=== PATIENT | female | born 1945 | race Asian ===

== ENCOUNTER 2025-01-10 02:06 | Inpatient (IN) | payer MEDICARE ==
[2025-01-10] VITALS (9 sets, daily range): BP systolic 98–130; BP diastolic 50–76; PULSE 90–104; RESP 16–24; TEMP 35.8–36.7; O2SAT 0–100
[~2025-01-10] VITALS: Ht 152.4 cm; Wt 40.9 kg
[2025-01-10 03:12] LABS: BASOPHILS % 0.3 % (0.0-2.0); EOSINOPHILS % 0.3 % (0.0-5.0); HEMATOCRIT. 39.7 % (36.0-48.0); HEMOGLOBIN. 12.4 g/dL (12.0-16.0); LYMPHOCYTES % 11.2 % (20.0-50.0); MEAN PLATELET VOLUME 8.0 fl (7.4-10.4); MONOCYTES % 6.9 % (2.0-8.0); NEUTROPHILS % 81.3 % (40.0-76.0); PLATELET 403 x1000/uL (130-400); RED BLOOD CELL COUNT 4.25 mill/uL (4.2-5.4); RED CELL DISTRIBUTION WIDTH 14.4 % (11.6-14.6)
[2025-01-10] MEDS: SODIUM CHLORIDE 0.9% 1,000 ML IV ONE (03:20)
[2025-01-10 03:47] LABS: CREATININE 0.5 mg/dL (0.6-1.0); UREA NITROGEN BLOOD 15 mg/dL (9-23)
[2025-01-10 03:49] LABS: ASPARTATE AMINOTRANSFERASE 25 IU/L (<34); BILIRUBIN DIRECT 0.1 mg/dL (<=3.0); BILIRUBIN TOTAL 0.6 mg/dL (0.1-1.0)
[2025-01-10 03:50] LABS: PROTEIN TOTAL 7.1 g/dL (6.0-8.3)
[2025-01-10 03:51] LABS: TROPONIN I HIGH SENSITIVITY 36 ng/L (3.0-34)
[2025-01-10] MEDS ORDERED: GUAIFENESIN 200MG/10ML SUGAR FREE UDC PO PRN (08:15)
[2025-01-10] MEDS ORDERED: ONDANSETRON HCL 4MG/2ML INJ IV PRN (08:15)
[2025-01-10] MEDS ORDERED: ACETAMINOPHEN 325MG TABLET PO PRN ×2 (08:15)
[2025-01-10] MEDS ORDERED: IPRATROPIUM/ALBUTEROL 0.5-3(2.5)MG/3ML NEB HHN PRN (08:15)
[2025-01-10] MEDS ORDERED: CLONIDINE 0.1MG TABLET PO PRN (08:15)
[2025-01-10] MEDS ORDERED: LACTULOSE 20G/30ML UDC PO PRN (09:00)
[2025-01-10] MEDS: POLYETHYLENE GLYCOL 3350 (17GM) 1 DOSE PACK PO NR (11:49)
[2025-01-10] MEDS: PANTOPRAZOLE 40MG DR TABLET PO SCH (11:49)
[2025-01-10] MEDS: ENOXAPARIN 30MG/0.3ML SYR SUBCUT SCH (13:30)
[2025-01-10 19:34] LABS: INR 1.0
[2025-01-10 19:43] LABS: PHOSPHORUS 3.1 mg/dL (2.5-4.9)
[2025-01-10 19:46] LABS: TROPONIN I HIGH SENSITIVITY 408 ng/L (3.0-34)
[2025-01-10] MEDS: ATORVASTATIN CALCIUM 20MG TABLET PO SCH (20:48)
[2025-01-10] MEDS: AMLODIPINE 2.5MG TABLET PO SCH (20:48)
[2025-01-10] MEDS: ASPIRIN 81MG TABLET PO SCH (20:48)
[2025-01-10] MEDS ORDERED: ATORVASTATIN CALCIUM 20MG TABLET PO SCH (21:00)
[2025-01-10] MEDS: IPRATROPIUM/ALBUTEROL 0.5-3(2.5)MG/3ML NEB HHN SCH (21:07)
[2025-01-10] MEDS: SODIUM CHLORIDE 0.9% 1,000 ML IV SCH (23:02)
[2025-01-11] VITALS (12 sets, daily range): BP systolic 100–135; BP diastolic 50–69; PULSE 79–116; RESP 18–24; TEMP 36.4–37.1; O2SAT 95–100
[2025-01-11 02:50] LABS: CREATINE KINASE MB FRACTION 3.3 ng/mL (0.5-3.6)
[2025-01-11 02:56] LABS: TROPONIN I HIGH SENSITIVITY 230.0 ng/L (3.0-34)
[2025-01-11] MEDS: MAGNESIUM 2 G PREMIX 50 ML IV SCH (05:24)
[2025-01-11 07:29] LABS: BASOPHILS % 0.4 % (0.0-2.0); EOSINOPHILS % 2.5 % (0.0-5.0); HEMATOCRIT. 33.2 % (36.0-48.0); HEMOGLOBIN. 10.7 g/dL (12.0-16.0); LYMPHOCYTES % 17.3 % (20.0-50.0); MEAN PLATELET VOLUME 8.9 fl (7.4-10.4); MONOCYTES % 7.5 % (2.0-8.0); NEUTROPHILS % 72.3 % (40.0-76.0); PLATELET 378 x1000/uL (130-400); RED BLOOD CELL COUNT 3.62 mill/uL (4.2-5.4); RED CELL DISTRIBUTION WIDTH 14.0 % (11.6-14.6)
[2025-01-11 07:39] LABS: CREATINE KINASE MB FRACTION 2.3 ng/mL (0.5-3.6)
[2025-01-11 07:43] LABS: CREATININE 0.5 mg/dL (0.6-1.0); T4 FREE 1.16 ng/dL (0.89-1.76); TRIGLYCERIDE 110 mg/dL (0-150); UREA NITROGEN BLOOD 15 mg/dL (9-23)
[2025-01-11 07:44] LABS: LDL CHOLESTEROL 130 mg/dL (5-100)
[2025-01-11 07:45] LABS: ASPARTATE AMINOTRANSFERASE 20 IU/L (<34); BILIRUBIN DIRECT 0.1 mg/dL (<=3.0); PHOSPHORUS 3.0 mg/dL (2.5-4.9)
[2025-01-11 07:46] LABS: BILIRUBIN TOTAL 0.6 mg/dL (0.1-1.0); PROTEIN TOTAL 5.8 g/dL (6.0-8.3)
[2025-01-11 08:05] LABS: TROPONIN I HIGH SENSITIVITY 195 ng/L (3.0-34)
[2025-01-11] MEDS: ENOXAPARIN 40MG/0.4ML SYR SUBCUT SCH (09:28)
[2025-01-11] MEDS: LIDOCAINE HCL 1% 20ML VIAL INFIL NR (13:30)
[2025-01-11] MEDS: MORPHINE SULFATE 10 MG/ML INJ (NOT FOR IM USE) IV PRN (14:27)
[2025-01-11] MEDS: PIPERACILLIN/TAZO 3.375G/50ML 50 ML IV SCH (15:26)
[2025-01-11] MEDS: MORPHINE SULFATE 10 MG/ML INJ (NOT FOR IM USE) IV SCH (18:37)
[2025-01-11 22:06] LABS: INR 1.0
[2025-01-12] VITALS (10 sets, daily range): BP systolic 99–125; BP diastolic 46–65; PULSE 78–101; RESP 18–40; TEMP 36.4–36.6; O2SAT 86–100
[2025-01-12] MEDS ORDERED: DEXTROSE 50% WATER 50ML SYRINGE IV PRN (09:30)
[2025-01-12] MEDS: POLYETHYLENE GLYCOL 3350 (17GM) 1 DOSE PACK PO SCH (09:35)
[2025-01-12] MEDS: BLOOD SUGAR DIAGNOSTIC STRIP TEST SCH (12:20)
[2025-01-12 13:19] LABS: BG BASE EXCESS 15.3 mmol/L (-2.0-3.0); BG CARBOXYHEMOGLOBIN 0.8 % (0.5-1.5); BG DEOXYHEMOGLOBIN 0.8 % (0.0-5.0); BG FLOW(L/min) 3.00 L/min; BG FRACTION INSPIRED OXYGEN 32; BG HCO3 ACT 42.1 mmol/L (21.0-28.0); BG METHEMOGLOBIN 0.1 % (0.5-1.5); BG OXYGEN SATURATION 99.2 % (94.0-98.0); BG OXYHEMOGLOBIN 98.3 % (94.0-98.0); BG PCO2 65.4 mmHg (32.0-45.0); BG PH 7.427 (7.350-7.450); BG PO2 137.3 mmHg (83.0-108.0); BG SAMPLE SITE LEFT RADIAL; BG TOTAL HEMOGLOBIN 10.4 g/dL (12.0-16.0); BG VENT MODE NASAL CANNULA
[2025-01-12] MEDS: INSULIN LISPRO 100 UNITS/ML SUBCUT SCH (14:06)
[2025-01-12 22:38] LABS: HEMATOCRIT. 30.3 % (36.0-48.0); HEMOGLOBIN. 9.7 g/dL (12.0-16.0); MEAN PLATELET VOLUME 8.7 fl (7.4-10.4); PLATELET 351 x1000/uL (130-400); RED BLOOD CELL COUNT 3.26 mill/uL (4.2-5.4); RED CELL DISTRIBUTION WIDTH 13.4 % (11.6-14.6)
[2025-01-12 22:56] LABS: CREATININE 0.4 mg/dL (0.6-1.0); UREA NITROGEN BLOOD 11 mg/dL (9-23)
[2025-01-12 23:13] LABS: EOSINOPHILS % MANUAL 3.0 % (0.0-5.0); LYMPHOCYTES % MANUAL 7.0 % (20.0-60.0); MONOCYTES % MANUAL 7.0 % (2.0-8.0); NEUTROPHILS % MANUAL 83.0 % (45.0-75.0); PLATELET ESTIMATE NORMAL
[2025-01-13] VITALS (12 sets, daily range): BP systolic 97–146; BP diastolic 48–66; PULSE 81–100; RESP 15–24; TEMP 36.3–36.7; O2SAT 95–100
[2025-01-13 08:37] LABS: PLATELET 330 x1000/uL (130-400); RED BLOOD CELL COUNT 3.29 mill/uL (4.2-5.4); RED CELL DISTRIBUTION WIDTH 13.5 % (11.6-14.6)
[2025-01-13 08:52] LABS: CREATININE 0.3 mg/dL (0.6-1.0); UREA NITROGEN BLOOD 6 mg/dL (9-23)
[2025-01-13] MEDS ORDERED: SENNOSIDES/DOCUSATE SOD 8.6/50MG TABLET PO PRN (13:30)
[2025-01-13] MEDS ORDERED: NALOXONE HCL 0.4MG/ML VIAL IV PRN (13:45)
[2025-01-14] VITALS (12 sets, daily range): BP systolic 113–144; BP diastolic 45–91; PULSE 80–95; RESP 15–24; TEMP 34.4–36.7; O2SAT 96–99
[2025-01-14 06:49] LABS: UREA NITROGEN BLOOD 7 mg/dL (9-23)
[2025-01-14 07:06] LABS: CREATININE 0.4 mg/dL (0.6-1.0)
[2025-01-14] MEDS: HYDROCODONE/ACETAMINOPHEN 5/325MG TABLET PO PRN (09:13)
[2025-01-14] MEDS: POTASSIUM CHLORIDE 20MEQ/PACKET PO NR (11:28)
[2025-01-15] VITALS (9 sets, daily range): BP systolic 112–142; BP diastolic 45–79; PULSE 77–100; RESP 17–20; TEMP 35.7–36.8; O2SAT 96–100
[2025-01-15 09:46] LABS: PLATELET 392 x1000/uL (130-400); RED BLOOD CELL COUNT 3.60 mill/uL (4.2-5.4); RED CELL DISTRIBUTION WIDTH 13.9 % (11.6-14.6)
[2025-01-15 12:12] LABS: CREATININE 0.5 mg/dL (0.6-1.0); UREA NITROGEN BLOOD 9 mg/dL (9-23)
[2025-01-16] VITALS: BP 151/77; PULSE 97; RESP 21; TEMP 36.3; O2SAT 97
[2025-01-16 04:00] VITALS: BP 158/68; PULSE 88; RESP 18; TEMP 36.1; O2SAT 97
[2025-01-16 08:00] VITALS: BP 137/70; PULSE 91; RESP 17; TEMP 35.7; O2SAT 95
[2025-01-16 12:00] VITALS: BP 129/68; PULSE 98; RESP 16; TEMP 36.2; O2SAT 99
[2025-01-16] MEDS ORDERED: EMPA25TA MT (14:12)
[2025-01-16 16:00] VITALS: BP 124/64; PULSE 95; RESP 16; TEMP 36.2; O2SAT 99
[2025-01-16 17:33] VITALS: BP 124/64; PULSE 95; RESP 16; TEMP 97.1
== END 2025-01-16 19:39 | disposition home or self-care (01) | DRG 199 ==
LOC: ER 02:06 → 6WST 04:37 → EDBEDREQTM 05:15 → EDBEDREQ 05:15 → ENRESERV 06:07
PROVIDERS: ADMIT Internal Medicine; ATTEND Internal Medicine
PROC: 5A0935A Assistance with Respiratory Ventilation, Less than 24 Consecutive Hours, High Flow/Velocity Cannula (ICD-10-PCS; principal; 2025-01-10)
PROC: 5A0935A Assistance with Respiratory Ventilation, Less than 24 Consecutive Hours, High Flow/Velocity Cannula (ICD-10-PCS; 2025-01-11)
PROC: 0W9930Z Drainage of Right Pleural Cavity with Drainage Device, Percutaneous Approach (ICD-10-PCS; 2025-01-11)
DX: J93.83 Other pneumothorax (principal); I21.A1 Myocardial infarction type 2; J96.21 Acute and chronic respiratory failure with hypoxia; J94.8 Other specified pleural conditions; J93.81 Chronic pneumothorax; K56.41 Fecal impaction; I10 Essential (primary) hypertension; J84.10 Pulmonary fibrosis, unspecified; M79.7 Fibromyalgia; R91.1 Solitary pulmonary nodule; I44.0 Atrioventricular block, first degree; K57.30 Diverticulosis of large intestine without perforation or abscess without bleeding; R73.9 Hyperglycemia, unspecified; S01.81XA Laceration without foreign body of other part of head, initial encounter; E78.5 Hyperlipidemia, unspecified; I25.10 Atherosclerotic heart disease of native coronary artery without angina pectoris; J43.9 Emphysema, unspecified; N32.89 Other specified disorders of bladder; W18.39XA Other fall on same level, initial encounter; Z99.81 Dependence on supplemental oxygen; Z90.49 Acquired absence of other specified parts of digestive tract; Y93.89 Activity, other specified; Y92.89 Other specified places as the place of occurrence of the external cause; Y99.8 Other external cause status
CPT/HCPCS: 36415; 36600; 71045; 71250; 74176; 80048; 80061; 80076; 82140; 82375; 82550; 82553; 82805; 82962; 83036; 83735; 83880; 83930; 84100; 84439; 84443; 84484; 85025; 85027; 92610; 93005; 93306; 93970; 94070; 94640; 94664; 98960; 99285; A4606; J1650; J1815; J2003; J2270; J2543; J3475; J7030